=== PATIENT | male | born 1950 | race Hispanic/Latino ===

== ENCOUNTER 2021-07-27 09:43 | Inpatient (IN) | payer MEDICARE, OTHER ==
[~2021-07-27] VITALS: Ht 177.8 cm; Wt 74.7 kg
[2021-07-27 10:34] LABS: BASOPHILS % (AUTO) 0.2 % (0.0-5.0); EOSINOPHILS % (AUTO) 1.2 % (0.0-8.0); HEMATOCRIT 32.3 % (42-54); LYMPHOCYTES % (AUTO) 7.8 % (21.0-51.0); MEAN CORPUSCULAR HEMOGLOBIN 26.3 pg (27.0-33.0); MEAN CORPUSCULAR HGB CONC 31.9 g/dL (32.0-36.0); MEAN CORPUSCULAR VOLUME 82.6 fL (79-99); MONOCYTES % (AUTO) 7.3 % (3.0-13.0); NEUTROPHILS % (AUTO) 82.6 % (40.0-77.0); PLATELET COUNT (AUTO) 109 K/uL (130-400); RED BLOOD CELL COUNT(AUTO) 3.91 MIL/uL (4.50-6.20); RED CELL DISTRIBUTION WIDTH 23.2 % (11.0-15.5); WHITE BLOOD COUNT (AUTO) 9.1 K/uL (4.8-10.8)
[2021-07-27 10:38] LABS: CREATININE 1.3 mg/dL (0.5-1.5); POTASSIUM 3.6 mmol/L (3.5-5.1)
[2021-07-27 10:43] LABS: ALBUMIN 2.5 g/dL (3.5-5.0); BILIRUBIN,TOTAL 1.1 mg/dL (0.2-1.0)
[2021-07-27 10:56] LABS: APPEARANCE,URINE CLEAR (CLEAR); BILIRUBIN,URINE NEGATIVE (NEGATIVE); COLOR,URINE YELLOW (YELLOW); GLUCOSE, URINE (UA) 500 mg/dL (NEGATIVE); KETONES,URINE NEGATIVE (NEGATIVE); LEUKOCYTE ESTERASE ,URINE NEGATIVE (NEGATIVE); NITRATE,URINE NEGATIVE (NEGATIVE); OCCULT BLOOD,URINE LARGE (NEGATIVE); PROTEIN,URINE 30 mg/dL (NEGATIVE); UROBILINOGEN,URINE 0.2 mg/dL (0.2-1.0)
[2021-07-27 11:06] LABS: INR 1.24 (0.85-1.15); PROTHROMBIN TIME 13.3 SEC (9.6-11.6)
[2021-07-27 11:07] LABS: PARTIAL THROMBOPLASTIN TIME 31.8 SEC (26.3-35.5)
[2021-07-27 11:19] LABS: BACTERIA,URINE Rare /HPF (None Seen); RBC,URINE 0-1 /HPF (0-1); WBC,URINE 0-1 /HPF (0-1); YEAST,URINE BUDDING Moderate /HPF (None Seen)
[2021-07-27 11:20] LABS: SQUAMOUS EPITHELIAL CELL,UR Rare /HPF (0-2)
[2021-07-27] MEDS ORDERED: PANTOPRAZOLE 40 MG/VIAL IVP ONE (12:00)
[2021-07-27] MEDS ORDERED: FLUCONAZOLE 100 MG TAB PO ONE (12:00)
[2021-07-27] MEDS: PANTOPRAZOLE 40MG INJ 80 MG in 0.9%NACL 100ML 100 ML IVP SCH ×2 (13:32→22:41)
[2021-07-27 16:16] LABS: HEMATOCRIT 31.1 % (42-54)
[2021-07-27 16:50] LABS: SPECIMENTYPE,BODY FLUID ASCITES
[2021-07-27 16:59] LABS: APPEARANCE BODY FLUID SLIGHTLY CLOUDY (CLEAR); COLOR,BODY FLUID YELLOW (LT YELLOW); TOTAL VOLUME,BODY FLUID 3045 mL
[2021-07-27 17:00] LABS: BODY FLUID RBC 108 /cu. mm.; BODY FLUID WBC 89 /cu. mm.
[2021-07-27 18:02] LABS: BF LYMPHOCYTE 26 %; BF OTHER CELLS 1
[2021-07-27] MEDS: INSULIN HUMULIN R 100 UNIT/ML 3ML SQ SCH (18:25)
[2021-07-27] MEDS: INSULIN GLARGINE 100 UNITS/ML 10 ML VIAL SQ SCH (21:12)
[2021-07-27 22:14] LABS: HEMATOCRIT 30.6 % (42-54)
[2021-07-27] MEDS ORDERED: PANTOPRAZOLE 40 MG/VIAL ONE (22:22)
[2021-07-27] MEDS ORDERED: 0.9%NACL 100ML 100 ML ONE (22:23)
[2021-07-27 23:55] VITALS: BP 102/48
[2021-07-28] MEDS: INSULIN HUMULIN R 100 UNIT/ML 3ML SQ SCH ×5 (02:06→20:31)
[2021-07-28] MEDS ORDERED: INSU100V3 IJ (02:30)
[2021-07-28] MEDS ORDERED: CHOL-34 PO (02:30)
[2021-07-28] MEDS ORDERED: HONE15GE TP (02:30)
[2021-07-28] MEDS ORDERED: SPIR50TA PO (02:30)
[2021-07-28] MEDS ORDERED: INSU100V3 SQ (02:30)
[2021-07-28] MEDS ORDERED: METF-444 PO (02:30)
[2021-07-28] MEDS ORDERED: CEFE1FRO IV (02:30)
[2021-07-28] MEDS ORDERED: ASCO500T20 PO (02:30)
[2021-07-28] MEDS ORDERED: PROT946L PO (02:30)
[2021-07-28] MEDS ORDERED: ZINC220T4 PO (02:30)
[2021-07-28] MEDS ORDERED: HYDR28.32 TP (02:30)
[2021-07-28] MEDS ORDERED: INSU3INS3 SQ (02:30)
[2021-07-28] MEDS ORDERED: PANT40TA54 PO (02:30)
[2021-07-28] MEDS ORDERED: BET120L MISC (02:30)
[2021-07-28] MEDS ORDERED: MVIT PO (02:30)
[2021-07-28] MEDS ORDERED: FURO40TA5 PO (02:30)
[2021-07-28] MEDS ORDERED: ONDA-104 PO (02:30)
[2021-07-28] MEDS ORDERED: LACT10SO9 PO (02:30)
[2021-07-28 04:00] VITALS: BP 152/71
[2021-07-28 05:42] LABS: HEMATOCRIT 28.2 % (42-54)
[2021-07-28 07:30] VITALS: BP 143/73
[2021-07-28] MEDS: PANTOPRAZOLE 40MG INJ 80 MG in 0.9%NACL 100ML 100 ML IVP SCH ×3 (09:21→23:32)
[2021-07-28 11:00] VITALS: BP 131/67
[2021-07-28] MEDS ORDERED: COMPOUND IV MISC 1 EACH IVSOLN MISC PRN (11:30)
[2021-07-28 12:04] LABS: HEMATOCRIT 29.4 % (42-54)
[2021-07-28 16:00] VITALS: BP 132/64
[2021-07-28 19:40] VITALS: BP 130/68
[2021-07-28] MEDS: INSULIN GLARGINE 100 UNITS/ML 10 ML VIAL SQ SCH (20:31)
[2021-07-28 23:25] VITALS: BP 136/61
[2021-07-28 23:33] LABS: HEMATOCRIT 27.3 % (42-54)
[2021-07-29] VITALS (24 sets, daily range): BP systolic 102–163; BP diastolic 46–74
[2021-07-29 04:12] LABS: HEMATOCRIT 28.2 % (42-54); MEAN CORPUSCULAR HEMOGLOBIN 26.5 pg (27.0-33.0); MEAN CORPUSCULAR HGB CONC 32.3 g/dL (32.0-36.0); RED BLOOD CELL COUNT(AUTO) 3.44 MIL/uL (4.50-6.20); RED CELL DISTRIBUTION WIDTH 22.9 % (11.0-15.5); WHITE BLOOD COUNT (AUTO) 8.9 K/uL (4.8-10.8)
[2021-07-29] MEDS: PANTOPRAZOLE 40MG INJ 80 MG in 0.9%NACL 100ML 100 ML IVP SCH ×2 (04:27→08:28)
[2021-07-29 04:34] LABS: CREATININE 1.2 mg/dL (0.5-1.5); POTASSIUM 3.3 mmol/L (3.5-5.1)
[2021-07-29] MEDS ORDERED: KCL 20 MEQ ERTAB PO ONE (05:30)
[2021-07-29] MEDS: INSULIN HUMULIN R 100 UNIT/ML 3ML SQ SCH ×4 (05:48→20:01)
[2021-07-29] MEDS ORDERED: PROPOFOL 10 MG/ML 20ML VIAL IV ONE (10:48)
[2021-07-29] MEDS ORDERED: EPHEDRINE SULFATE 50 MG/ML AMPULE ONE (10:49)
[2021-07-29] MEDS ORDERED: POTASSIUM CHLORIDE 10% ELIXIR 20 MEQ/15 ML UDCUP PO PRN (16:30)
[2021-07-29] MEDS ORDERED: INSULIN HUMULIN R 100 UNIT/ML 3ML SQ SCH (16:30)
[2021-07-29] MEDS ORDERED: DEXTROSE 50%-WATER 50 ML DISP.SYRIN IV PRN (16:30)
[2021-07-29] MEDS ORDERED: POTASSIUM CHLORIDE 20MEQ/100ML 100 ML IV PRN (16:30)
[2021-07-29] MEDS ORDERED: KCL 20 MEQ ERTAB PO PRN (16:30)
[2021-07-29] MEDS ORDERED: GLUCAGON 1MG KIT 1 MG ML IM PRN (16:30)
[2021-07-29] MEDS ORDERED: LIDOCAINE HCL-MPF 1% 2ML VIAL IV PRN (16:30)
[2021-07-29] MEDS: CEFEPIME HCL 1 GM VIAL IV SCH ×2 (16:51→23:49)
[2021-07-29] MEDS: METFORMIN HCL 500 MG TABLET PO SCH (16:51)
[2021-07-29] MEDS: SIMETHICONE 80 MG TAB.CHEW PO SCH (18:16)
[2021-07-29] MEDS: INSULIN GLARGINE 100 UNITS/ML 10 ML VIAL SQ SCH (19:53)
[2021-07-29] MEDS: PROTEIN SUPPLEMENT 946 ML BOTTLE PO SCH (20:01)
[2021-07-29] MEDS ORDERED: HONEY 1 APPL/ML TUBE TP ONE (20:46)
[2021-07-30 03:53] VITALS: BP 105/46
[2021-07-30 04:10] LABS: HEMATOCRIT 28.4 % (42-54); MEAN CORPUSCULAR HEMOGLOBIN 26.5 pg (27.0-33.0); MEAN CORPUSCULAR VOLUME 82.6 fL (79-99); RED BLOOD CELL COUNT(AUTO) 3.44 MIL/uL (4.50-6.20); RED CELL DISTRIBUTION WIDTH 22.5 % (11.0-15.5); WHITE BLOOD COUNT (AUTO) 9.9 K/uL (4.8-10.8)
[2021-07-30 04:22] LABS: CREATININE 1.1 mg/dL (0.5-1.5)
[2021-07-30] MEDS: INSULIN HUMULIN R 100 UNIT/ML 3ML SQ SCH ×7 (05:57→21:53)
[2021-07-30 07:25] VITALS: BP 119/65
[2021-07-30] MEDS: PANTOPRAZOLE 40 MG TAB DR PO SCH (08:53)
[2021-07-30] MEDS: METFORMIN HCL 500 MG TABLET PO SCH ×2 (08:53→15:44)
[2021-07-30] MEDS: SPIRONOLACTONE 25 MG TAB PO SCH (08:53)
[2021-07-30] MEDS: LACTULOSE 20 GM/30 ML UDCUP PO SCH (08:53)
[2021-07-30] MEDS: ASCORBIC ACID 500 MG TAB PO SCH (08:54)
[2021-07-30] MEDS: FUROSEMIDE 40 MG TABLET PO SCH (08:54)
[2021-07-30] MEDS: CEFEPIME HCL 1 GM VIAL IV SCH ×2 (08:54→15:44)
[2021-07-30] MEDS: MULTIVITAMIN TABLET PO SCH (08:54)
[2021-07-30] MEDS: SIMETHICONE 80 MG TAB.CHEW PO SCH ×3 (08:54→21:36)
[2021-07-30] MEDS: HONEY 1 APPL/ML TUBE TP SCH (08:55)
[2021-07-30] MEDS: PROTEIN SUPPLEMENT 946 ML BOTTLE PO SCH ×2 (09:00→21:00)
[2021-07-30] MEDS: **HM**(Zinc Sulfate (Zinc) 50 MG PO SCH (09:00)
[2021-07-30] MEDS: CHOLECALCIFEROL 50 MCG PO SCH (09:00)
[2021-07-30] MEDS ORDERED: PANTOPRAZOLE 40 MG TAB DR PO SCH (09:00)
[2021-07-30] MEDS ORDERED: HONEY 1 APPL/ML TUBE TP SCH (11:00)
[2021-07-30 11:10] VITALS: BP 127/59
[2021-07-30] MEDS ORDERED: BALSAM PERU/CASTOR OIL 60 GM TUBE TP SCH (14:00)
[2021-07-30 15:25] VITALS: BP 138/93
[2021-07-30 19:42] VITALS: BP 114/61
[2021-07-30] MEDS: BALSAM PERU/CASTOR OIL 60 GM TUBE TP SCH ×2 (21:36→21:55)
[2021-07-30] MEDS: INSULIN GLARGINE 100 UNITS/ML 10 ML VIAL SQ SCH (21:55)
[2021-07-30 23:35] VITALS: BP 112/66
[2021-07-31 04:03] VITALS: BP 138/67
[2021-07-31 06:12] LABS: HEMATOCRIT 29.1 % (42-54); MEAN CORPUSCULAR HEMOGLOBIN 27.4 pg (27.0-33.0); MEAN CORPUSCULAR VOLUME 83.1 fL (79-99); RED BLOOD CELL COUNT(AUTO) 3.5 MIL/uL (4.50-6.20); RED CELL DISTRIBUTION WIDTH 22.6 % (11.0-15.5); WHITE BLOOD COUNT (AUTO) 11.6 K/uL (4.8-10.8)
[2021-07-31 06:20] LABS: CREATININE 1.1 mg/dL (0.5-1.5); POTASSIUM 4.3 mmol/L (3.5-5.1)
[2021-07-31] MEDS: INSULIN HUMULIN R 100 UNIT/ML 3ML SQ SCH ×6 (07:30→16:30)
[2021-07-31 08:00] VITALS: BP 110/58
[2021-07-31] MEDS: SIMETHICONE 80 MG TAB.CHEW PO SCH ×2 (08:55→12:13)
[2021-07-31] MEDS: MULTIVITAMIN TABLET PO SCH (08:55)
[2021-07-31] MEDS: ASCORBIC ACID 500 MG TAB PO SCH (08:55)
[2021-07-31] MEDS: PANTOPRAZOLE 40 MG TAB DR PO SCH (08:55)
[2021-07-31] MEDS: METFORMIN HCL 500 MG TABLET PO SCH ×2 (08:55→16:16)
[2021-07-31] MEDS: FUROSEMIDE 40 MG TABLET PO SCH (08:55)
[2021-07-31] MEDS: SPIRONOLACTONE 25 MG TAB PO SCH (08:56)
[2021-07-31] MEDS: LACTULOSE 20 GM/30 ML UDCUP PO SCH (08:56)
[2021-07-31] MEDS: CEFEPIME HCL 1 GM VIAL IV SCH ×3 (08:56→16:16)
[2021-07-31] MEDS: CHOLECALCIFEROL 50 MCG PO SCH (09:00)
[2021-07-31] MEDS: **HM**(Zinc Sulfate (Zinc) 50 MG PO SCH (09:00)
[2021-07-31] MEDS: BALSAM PERU/CASTOR OIL 60 GM TUBE TP SCH ×2 (09:00→16:30)
[2021-07-31] MEDS: HONEY 1 APPL/ML TUBE TP SCH (09:08)
[2021-07-31 12:00] VITALS: BP 134/59
== END 2021-07-31 16:55 | DRG 432 ==
LOC: EDH 09:43 → EDHIP 12:36 → 4BH 07-28 00:09
PROVIDERS: ADMIT Internal Medicine; ATTEND Internal Medicine
PROC: 02HV33Z Insertion of Infusion Device into Superior Vena Cava, Percutaneous Approach (ICD-10-PCS; 2021-07-27)
PROC: 0W9G3ZZ Drainage of Peritoneal Cavity, Percutaneous Approach (ICD-10-PCS; 2021-07-27)
PROC: 06L38CZ Occlusion of Esophageal Vein with Extraluminal Device, Via Natural or Artificial Opening Endoscopic (ICD-10-PCS; principal; 2021-07-29)
DX: K74.60 Unspecified cirrhosis of liver (principal); K29.71 Gastritis, unspecified, with bleeding; R18.8 Other ascites; G82.20 Paraplegia, unspecified; K76.6 Portal hypertension; I85.10 Secondary esophageal varices without bleeding; B37.81 Candidal esophagitis; D62 Acute posthemorrhagic anemia; Z79.4 Long term (current) use of insulin; D69.59 Other secondary thrombocytopenia; Z79.2 Long term (current) use of antibiotics; K31.89 Other diseases of stomach and duodenum; I10 Essential (primary) hypertension; Z99.3 Dependence on wheelchair; L89.152 Pressure ulcer of sacral region, stage 2; E11.40 Type 2 diabetes mellitus with diabetic neuropathy, unspecified; Z87.440 Personal history of urinary (tract) infections
CPT/HCPCS: 36415; 43244; 71045; 80048; 80053; 81001; 82140; 82270; 82948; 84157; 85014; 85018; 85025; 85027; 85610; 85730; 86850; 86900; 86901; 87071; 87205; 89051; 93005; A4606; C9113; G0378; J0692; J1815; J2704; J3490

== ENCOUNTER 2021-09-18 10:15 | Emergency (ER) | payer OTHER ==
[~2021-09-18] VITALS: Ht 177.8 cm; Wt 79.4 kg
[~2021-09-18 10:15] MED LIST: ASCO500T20 PO; BET120L MISC; CEFE1FRO IV; CHOL-34 PO; FURO40TA5 PO; HONE15GE TP; HYDR28.32 TP; INSU100V3 IJ; INSU100V3 SQ; INSU3INS3 SQ; LACT10SO9 PO; METF-444 PO; MVIT PO; ONDA-104 PO; PANT40TA54 PO; PROT946L PO; SPIR50TA PO; ZINC220T4 PO
[2021-09-18 10:42] LABS: BASOPHILS % (AUTO) 0.4 % (0.0-5.0); EOSINOPHILS % (AUTO) 1.9 % (0.0-8.0); HEMATOCRIT 28.4 % (42-54); LYMPHOCYTES % (AUTO) 25.7 % (21.0-51.0); MEAN CORPUSCULAR HEMOGLOBIN 27.4 pg (27.0-33.0); MEAN CORPUSCULAR VOLUME 85.5 fL (79-99); MONOCYTES % (AUTO) 7.5 % (3.0-13.0); NEUTROPHILS % (AUTO) 64.4 % (40.0-77.0); PLATELET COUNT (AUTO) 156 K/uL (130-400); RED BLOOD CELL COUNT(AUTO) 3.32 MIL/uL (4.50-6.20); RED CELL DISTRIBUTION WIDTH 16.4 % (11.0-15.5); WHITE BLOOD COUNT (AUTO) 6.9 K/uL (4.8-10.8)
[2021-09-18 10:51] LABS: CREATININE 1.4 mg/dL (0.5-1.5); POTASSIUM 3.9 mmol/L (3.5-5.1)
[2021-09-18 10:52] LABS: INR 1.19 (0.85-1.15); PROTHROMBIN TIME 12.8 SEC (9.6-11.6)
[2021-09-18 10:53] LABS: PARTIAL THROMBOPLASTIN TIME 31.7 SEC (26.3-35.5)
[2021-09-18 10:57] LABS: ALBUMIN 2.3 g/dL (3.5-5.0); BILIRUBIN,TOTAL 0.9 mg/dL (0.2-1.0); TOTAL PROTEIN, SERUM 6.9 g/dL (6.0-8.3)
[2021-09-18] MEDS ORDERED: ALBUMIN (HUMAN) 25% 200 ML IV ONE (11:30)
[2021-09-18 12:48] VITALS: BP 135/59
[2021-09-18 14:51] LABS: SPECIMENTYPE,BODY FLUID ASCITES
[2021-09-18 14:52] LABS: APPEARANCE BODY FLUID SLIGHTLY CLOUDY (CLEAR); BODY FLUID RBC 32 /cu. mm.; BODY FLUID WBC 180 /cu. mm.; COLOR,BODY FLUID YELLOW (LT YELLOW); TOTAL VOLUME,BODY FLUID 9100 mL
[2021-09-18 14:57] LABS: BF LYMPHOCYTE 86 %; BF MESOTHELIAL 9 %
[2021-09-18] MEDS ORDERED: LIDOCAINE HCL 400MG/20ML VIAL ONE (15:00)
== END 2021-09-18 13:45 | disposition home or self-care (01) ==
LOC: EDH 10:15
DX: R14.0 Abdominal distension (gaseous) (principal); R18.8 Other ascites; E11.9 Type 2 diabetes mellitus without complications; Z79.899 Other long term (current) drug therapy; Z79.84 Long term (current) use of oral hypoglycemic drugs; Z98.890 Other specified postprocedural states
CPT/HCPCS: 36415; 49083; 71045; 80053; 85025; 85610; 85730; 87071; 87205; 89051; 96365; 99285; C1729; J3490; P9046